=== PATIENT | female | born 1990 | race Caucasian/White ===

== ENCOUNTER 2017-06-04 17:14 | Emergency (ER) | payer MEDICAID ==
[~2017-06-04] VITALS: Ht 160 cm; Wt 68.2 kg
[2017-06-04 17:20] VITALS: BP 114/64; TEMP 98.2
[2017-06-04 18:18] VITALS: PULSE 92
== END 2017-06-04 18:19 | disposition home or self-care (01) ==
LOC: COL.ER 17:14
DX: K52.9 Noninfective gastroenteritis and colitis, unspecified (principal); J45.909 Unspecified asthma, uncomplicated

== ENCOUNTER 2018-08-25 12:48 | Emergency (ER) | payer MEDICAID ==
[~2018-08-25] VITALS: Ht 160 cm; Wt 70.5 kg
[2018-08-25 12:52] VITALS: BP 138/83; TEMP 98.1
[2018-08-25] MEDS ORDERED: XANAX 0.5MG0.5 MG PO (12:54)
[2018-08-25] MEDS ORDERED: AMITRIPTYLINE H50 M1 PO (12:54)
[2018-08-25 13:44] VITALS: PULSE 103
== END 2018-08-25 13:45 | disposition home or self-care (01) ==
LOC: COL.ER 12:48
DX: S05.01XA Injury of conjunctiva and corneal abrasion without foreign body, right eye, initial encounter (principal); F41.9 Anxiety disorder, unspecified; W55.03XA Scratched by cat, initial encounter

== ENCOUNTER 2018-12-02 16:08 | Emergency (ER) | payer MEDICAID ==
[~2018-12-02] VITALS: Ht 160 cm; Wt 76.5 kg
[~2018-12-02 16:08] MED LIST: AMITRIPTYLINE H50 M1 PO; XANAX 0.5MG0.5 MG PO
[2018-12-02 16:20] VITALS: TEMP 98.6
[2018-12-02 16:41] LABS: COLLECTION METHOD CLEAN CATCH
[2018-12-02 16:49] LABS: MUCOUS Present /lpf; PH 5 (5-8); URINE APPEARANCE Hazy; URINE BACTERIA None Seen /hpf; URINE BILIRUBIN Negative (NEGATIVE); URINE BLOOD 1+ (NEGATIVE); URINE COLOR Yellow; URINE GLUCOSE Negative (NEGATIVE); URINE KETONE Negative (NEGATIVE); URINE LEUKOCYTE ESTERASE 1+ (NEGATIVE); URINE NITRATE Negative (NEGATIVE); URINE PROTEIN(semi-quant) Negative (NEGATIVE); URINE RBC 0-2 /hpf
[2018-12-02] MEDS ORDERED: CEPHALEXIN500 M1 PO (17:14)
[2018-12-02] MEDS ORDERED: PRIL40 PO (17:15)
[2018-12-02 17:54] VITALS: BP 125/80; PULSE 96
== END 2018-12-02 17:40 | disposition home or self-care (01) ==
LOC: COL.ER 16:08
PROVIDERS: Physician Assistant
DX: N34.2 Other urethritis (principal); K21.9 Gastro-esophageal reflux disease without esophagitis; F41.9 Anxiety disorder, unspecified; F32.9 Major depressive disorder, single episode, unspecified; Z90.721 Acquired absence of ovaries, unilateral

== ENCOUNTER 2019-01-07 10:29 | Emergency (ER) | payer MEDICAID ==
[~2019-01-07] VITALS: Ht 157.5 cm; Wt 77.3 kg
[~2019-01-07 10:29] MED LIST changes: +CEPHALEXIN500 M1 PO; +PRIL40 PO
[2019-01-07 10:35] VITALS: BP 121/76
[2019-01-07 12:39] VITALS: PULSE 91; TEMP 97.6
== END 2019-01-07 12:46 | disposition home or self-care (01) ==
LOC: COL.ER 10:29
DX: B34.9 Viral infection, unspecified (principal); F41.9 Anxiety disorder, unspecified

== ENCOUNTER 2019-01-25 21:06 | Emergency (ER) | payer MEDICAID ==
[~2019-01-25] VITALS: Ht 160 cm; Wt 78.5 kg
[2019-01-25 21:13] VITALS: BP 130/78; TEMP 98.8
[2019-01-25 21:51] LABS: COLLECTION METHOD CLEAN CATCH
[2019-01-25 21:55] LABS: PH 6 (5-8); SQUAMOUS EPITHELIAL 0-2 /hpf; URINE APPEARANCE Clear; URINE BACTERIA None Seen /hpf; URINE BILIRUBIN Negative (NEGATIVE); URINE BLOOD 1+ (NEGATIVE); URINE COLOR Yellow; URINE GLUCOSE Negative (NEGATIVE); URINE KETONE Negative (NEGATIVE); URINE LEUKOCYTE ESTERASE Negative (NEGATIVE); URINE NITRATE Negative (NEGATIVE); URINE PROTEIN(semi-quant) Negative (NEGATIVE); URINE RBC 0-2 /hpf; URINE UROBILINOGEN Negative (NEGATIVE)
[2019-01-25] MEDS ORDERED: TESSALON P100 MG/CAP PO (23:33)
[2019-01-25] MEDS ORDERED: ZITHROMAX Z PA250 MG PO (23:33)
[2019-01-25] MEDS ORDERED: IBU600 MG PO (23:33)
[2019-01-25 23:49] VITALS: PULSE 106
== END 2019-01-25 23:49 | disposition home or self-care (01) ==
LOC: COL.ER 21:06
PROVIDERS: Emergency Medicine
DX: J06.9 Acute upper respiratory infection, unspecified (principal); F32.9 Major depressive disorder, single episode, unspecified

== ENCOUNTER → 2019-04-04 | Outpatient (CLI) | payer MEDICAID ==
[~2019-04-04] MED LIST changes: +IBU600 MG PO; +TESSALON P100 MG/CAP PO; +ZITHROMAX Z PA250 MG PO
== END ==
LOC: COL.RAD 07:34
DX: R31.29 Other microscopic hematuria (principal); N20.0 Calculus of kidney

== ENCOUNTER 2019-04-29 11:47 | Emergency (ER) | payer MEDICAID ==
[~2019-04-29] VITALS: Ht 160 cm; Wt 77.3 kg
[2019-04-29 12:32] VITALS: TEMP 98.9
[2019-04-29] MEDS ORDERED: TAMIFLU 75MG75 MG PO (13:44)
[2019-04-29] MEDS ORDERED: MOBIC15 MG PO (14:08)
[2019-04-29 14:23] VITALS: BP 120/75; PULSE 91
== END 2019-04-29 14:24 | disposition home or self-care (01) ==
LOC: COL.ER 11:47
DX: J11.1 Influenza due to unidentified influenza virus with other respiratory manifestations (principal); F41.9 Anxiety disorder, unspecified; R07.89 Other chest pain

== ENCOUNTER 2019-09-05 19:42 | Emergency (ER) | payer MEDICAID ==
[~2019-09-05] VITALS: Ht 160 cm; Wt 78.6 kg
[~2019-09-05 19:42] MED LIST changes: +MOBIC15 MG PO; +TAMIFLU 75MG75 MG PO
[2019-09-05 19:50] VITALS: TEMP 98.1
[2019-09-05] MEDS ORDERED: PROTONIX 40MG T40 MG PO (20:55)
[2019-09-05 21:25] VITALS: BP 113/88; PULSE 96
== END 2019-09-05 21:25 | disposition home or self-care (01) ==
LOC: COL.ER 19:42
DX: R11.2 Nausea with vomiting, unspecified (principal); R19.7 Diarrhea, unspecified; G89.29 Other chronic pain; R07.89 Other chest pain; K21.9 Gastro-esophageal reflux disease without esophagitis

== ENCOUNTER → 2019-12-03 | Outpatient (CLI) | payer MEDICAID ==
[~2019-12-03] MED LIST changes: +PROTONIX 40MG T40 MG PO
== END ==
LOC: ZCOL.LAB 16:07
DX: Z20.828 Contact with and (suspected) exposure to other viral communicable diseases (principal)

== ENCOUNTER 2020-01-11 15:09 | Emergency (ER) | payer MEDICAID ==
[~2020-01-11] VITALS: Ht 160 cm; Wt 81.4 kg
[2020-01-11 15:17] VITALS: TEMP 97.8
[2020-01-11] MEDS ORDERED: ZOFRAN 4MG T4 MG/TAB PO (15:47)
[2020-01-11 16:12] VITALS: BP 131/80; PULSE 101
== END 2020-01-11 16:13 | disposition home or self-care (01) ==
LOC: COL.ER 15:09
DX: R19.7 Diarrhea, unspecified (principal); F32.9 Major depressive disorder, single episode, unspecified; K21.9 Gastro-esophageal reflux disease without esophagitis; Z88.6 Allergy status to analgesic agent

== ENCOUNTER → 2020-01-17 | Outpatient (CLI) | payer MEDICAID ==
[~2020-01-17] MED LIST changes: +ZOFRAN 4MG T4 MG/TAB PO
== END ==
LOC: ZCOL.LAB 19:53
DX: J02.9 Acute pharyngitis, unspecified (principal); R19.7 Diarrhea, unspecified; Z20.828 Contact with and (suspected) exposure to other viral communicable diseases

== ENCOUNTER 2020-06-07 17:25 | Emergency (ER) | payer MEDICAID ==
[~2020-06-07] VITALS: Ht 160 cm; Wt 77.3 kg
[2020-06-07 17:43] VITALS: TEMP 97.5
[2020-06-07 19:23] LABS: BASO # 0.1 (0.0-0.2); BASO % 0.3 % (0.0-2.0); EOS % 0.1 % (0-4.0); GRAN # 12.3 (1.4-6.5); GRAN % 81.7 % (42.2-75.2); HEMATOCRIT 49.1 % (37.0-47.0); HEMOGLOBIN 16.9 g/dl (12.5-16.0); LYMPH # 1.7 (1.2-3.4); LYMPH % 11.3 % (20.0-51.0); MEAN CELL VOLUME 90 fl (80.0-100.0); MEAN CORPUSCULAR HEMOGLOBIN 31 pg (27.0-31.0); MEAN CORPUSCULAR HGB CONC 34 g/dl (33.0-37.0); MEAN PLATELET VOLUME 10.9 fl (7.4-10.4); MONO # 0.9 (0.1-0.6); MONO % 6.2 % (1.7-9.3); PLATELET COUNT 241 K/mm3 (130-400); RED BLOOD COUNT 5.46 M/mm3 (4.10-5.30); REDCELL DISTRIBUTION WIDTH-CV 12.9 % (11.5-14.5)
[2020-06-07 19:36] LABS: ALBUMIN 4.9 gm/dL (3.5-5.0); BILIRUBIN,TOTAL 1.3 mg/dL (0.0-1.0); C-REACTIVE PROTEIN 0.6 mg/dL (0.0-0.9); CALCIUM 10.2 mg/dL (8.4-10.2); CREATININE, serum 0.64 (0.52-1.25); POTASSIUM 4.3 mmol/L (3.4-5.0); TOTAL PROTEIN 8.7 gm/dL (6.4-8.2)
[2020-06-07] MEDS ORDERED: FLAGYL500 MG PO (23:24)
[2020-06-07] MEDS ORDERED: CIPRO 500MG TA500 MG PO (23:24)
[2020-06-07 23:45] VITALS: BP 120/83; PULSE 109
--- NOTE | 2020-06-08 09:21 | NUR ---
SENG follow-up form ED Visit animal care worker contact patient about referral for lack of resources. Patient reports that she needs to obtain her medications from the pharmacy. Patient reports that her vehicle is in the parking lot and she was sent home with a taxi. Patient reports that she has medical insurance and her medications are covered at [facility] and that her PCP is Dr. Pritchard at [facility]. Patient reports that she only needed support getting the medications. SENG staffed case with her and advised to call the pharmacy for delivery of the medications. Patient reports that she has a co-worker who could slate picker her care but is concerned about pain managment. Patient is educated to follow-up with PCP. No additional concerns at this time. Offered CCT program, Patient declined.
== END 2020-06-07 23:48 | disposition home or self-care (01) ==
LOC: COL.ER 17:25
PROVIDERS: Physician Assistant
DX: K52.9 Noninfective gastroenteritis and colitis, unspecified (principal); F41.9 Anxiety disorder, unspecified; F32.9 Major depressive disorder, single episode, unspecified; K21.9 Gastro-esophageal reflux disease without esophagitis; Z88.6 Allergy status to analgesic agent
CPT/HCPCS: J1885; J2405; J3010; J7030; Q9967

== ENCOUNTER 2020-07-09 09:34 | Emergency (ER) | payer MEDICAID ==
[~2020-07-09] VITALS: Ht 160 cm; Wt 70.5 kg
[~2020-07-09 09:34] MED LIST changes: +CIPRO 500MG TA500 MG PO; +FLAGYL500 MG PO
[2020-07-09 09:36] VITALS: TEMP 97.5
[2020-07-09 10:31] LABS: BASO % 0.3 % (0.0-2.0); EOS # 0.2 (0.0-0.7); EOS % 1.8 % (0-4.0); GRAN # 7.6 (1.4-6.5); GRAN % 82.9 % (42.2-75.2); HEMATOCRIT 48.4 % (37.0-47.0); HEMOGLOBIN 15.9 g/dl (12.5-16.0); LYMPH % 10.9 % (20.0-51.0); MEAN CELL VOLUME 93 fl (80.0-100.0); MEAN CORPUSCULAR HEMOGLOBIN 30 pg (27.0-31.0); MEAN CORPUSCULAR HGB CONC 33 g/dl (33.0-37.0); MEAN PLATELET VOLUME 10.7 fl (7.4-10.4); MONO # 0.4 (0.1-0.6); MONO % 3.9 % (1.7-9.3); PLATELET COUNT 227 K/mm3 (130-400); RED BLOOD COUNT 5.23 M/mm3 (4.10-5.30); REDCELL DISTRIBUTION WIDTH-CV 13.2 % (11.5-14.5)
[2020-07-09 10:41] LABS: ALBUMIN 4.9 gm/dL (3.5-5.0); BILIRUBIN,TOTAL 0.6 mg/dL (0.0-1.0); CREATININE, serum 0.62 (0.52-1.25); TOTAL PROTEIN 9.1 gm/dL (6.4-8.2)
[2020-07-09] MEDS ORDERED: BENTYL 10MG10 MG/CAP PO (11:37)
[2020-07-09] MEDS ORDERED: ZOFRAN ODT4 MG PO (11:37)
[2020-07-09 11:47] VITALS: BP 132/87; PULSE 84
== END 2020-07-09 12:00 | disposition home or self-care (01) ==
LOC: COL.ER 09:34
PROVIDERS: Emergency Medicine
DX: R11.2 Nausea with vomiting, unspecified (principal); R19.7 Diarrhea, unspecified; R10.9 Unspecified abdominal pain; Z88.6 Allergy status to analgesic agent
CPT/HCPCS: J1200; J1885; J2765; J7030

== ENCOUNTER 2020-07-10 09:06 | Observation (INO) | payer MEDICAID ==
[~2020-07-10] VITALS: Ht 160 cm; Wt 68.2 kg
[~2020-07-10 09:06] MED LIST changes: +BENTYL 10MG10 MG/CAP PO; +ZOFRAN ODT4 MG PO
[2020-07-10 13:51] VITALS: BP 129/83; PULSE 110; TEMP 98.4
[2020-07-10 16:00] VITALS: BP 133/73; PULSE 117; TEMP 98.8
--- NOTE | 2020-07-10 18:33 | NUR ---
Patient resting in bed at this time. Reports that pain is currently well controlled, but does spike when she has cramps. Patient initally refused lab draws, did eventually agree when informed that hospitalist states she will not be able to have procedures without baseline labs. Discussed clear liquid diet and bowel prep. Patient denies further needs, call light within reach.
[2020-07-10 19:17] VITALS: BP 118/70; PULSE 116; TEMP 99.1
--- NOTE | 2020-07-10 20:00 | NUR ---
PT GIVEN BOWEL PREP OF GATORADE/MIRALAX TO START DRINKING FOR SCHEDULED EGD/COLONOSCOPY TOMORROW 07/11. PT IS ALERT AND ORIENTED X4. HAS IVF INFUSING TO LEFT HAND WITHOUT REDNESS OR SWELLING. VOIDING WITHOUT PROBLEM.
--- NOTE | 2020-07-10 23:29 | NUR ---
PT ASKING TO HAVE IVF STOPPED, SHE IS HAVING DIFFICULTY GETTING TO THE BATHROOM D/T BOWEL PREP. ASKED PT TO CALL FOR HELP WITH IV POLE IF UNABLE TO PUSH IT. PT REPORTS HAVING LOOSE STOOLS, BUT HAS NOT SAVED ANY FOR THIS NURSE TO OBSERVE. PT WORKING ON SECOND BOTTLE OF PREP.
[2020-07-10 23:57] VITALS: BP 135/85; PULSE 114; TEMP 98.3
[2020-07-11] VITALS (8 sets, daily range): BP systolic 91–128; BP diastolic 39–82; PULSE 100–117; TEMP 97.9–99.8
--- NOTE | 2020-07-11 04:36 | NUR ---
MEDICATED WITH ATIVAN 0.5MG PO FOR LAB DRAW THIS AM. PT REPORTS LOOSE STOOLS, NO FURTHER SOLID. WAS UNABLE TO FINISH ALL OF LAST BOTTLE OF BOWEL PREP.
[2020-07-11 07:46] LABS: BASO % 0.4 % (0.0-2.0); EOS # 0.2 (0.0-0.7); EOS % 2.2 % (0-4.0); GRAN # 6.1 (1.4-6.5); GRAN % 73.7 % (42.2-75.2); HEMATOCRIT 38.4 % (37.0-47.0); LYMPH # 1.2 (1.2-3.4); LYMPH % 14.9 % (20.0-51.0); MEAN CELL VOLUME 90 fl (80.0-100.0); MEAN CORPUSCULAR HEMOGLOBIN 31 pg (27.0-31.0); MEAN CORPUSCULAR HGB CONC 34 g/dl (33.0-37.0); MEAN PLATELET VOLUME 10.8 fl (7.4-10.4); MONO # 0.7 (0.1-0.6); MONO % 8.6 % (1.7-9.3); PLATELET COUNT 176 K/mm3 (130-400); RED BLOOD COUNT 4.25 M/mm3 (4.10-5.30); REDCELL DISTRIBUTION WIDTH-CV 13.4 % (11.5-14.5)
[2020-07-11 07:54] LABS: HEMOGLOBIN 13.1 g/dl (12.5-16.0)
[2020-07-11 07:58] LABS: ALBUMIN 3.7 gm/dL (3.5-5.0); BILIRUBIN,TOTAL 0.8 mg/dL (0.0-1.0); CREATININE, serum 0.58 (0.52-1.25); POTASSIUM 3.4 mmol/L (3.4-5.0); TOTAL PROTEIN 6.8 gm/dL (6.4-8.2)
[2020-07-11 08:09] LABS: C-REACTIVE PROTEIN 13.9 mg/dL (0.0-0.9)
[2020-07-11 08:47] LABS: ERYTHROCYTE SEDIMENTATION RATE 14 mm/hr (0-20)
--- NOTE | 2020-07-11 11:20 | NUR ---
Patient to EGD/colonoscopy at this time.
--- NOTE | 2020-07-11 12:30 | NUR ---
Patient returns from EDG/colonscopy at 1225. Assessment unchanged. Requests food and to ambulate to the restroom. No c/o at this time.
[2020-07-11] MEDS ORDERED: PEPCID 20MG TAB20 MG PO (13:05)
[2020-07-11] MEDS ORDERED: PREDNISONE10 MG PO (13:07)
--- NOTE | 2020-07-11 15:00 | NUR ---
Discharge instructions reviewed with patient, verbalized understanding. Discharged via wheelchair to auto/home with family at 1500.
--- NOTE | 2020-07-11 16:11 | NUR ---
SW met with patient prior to DC. Notification indicated that the patient left her 8 year old was left with a nieghbor but was unsure if the nieghbor was appropriate. SW met with patient about this concerns. Patient reports that her son is with the nieghbor who is also a family friend and has taken care of her son before. Patient reports that it is a trusted friend. Patient that she boone snot have any additional needs and is supported in her care. NF.
== END 2020-07-11 15:00 | disposition home or self-care (01) ==
LOC: COL.ER 09:06 → SURG 11:49
PROVIDERS: Emergency Medicine; ADMIT Family Medicine
DX: K51.90 Ulcerative colitis, unspecified, without complications (principal); K29.30 Chronic superficial gastritis without bleeding; K25.9 Gastric ulcer, unspecified as acute or chronic, without hemorrhage or perforation; K29.80 Duodenitis without bleeding; K92.1 Melena; K63.5 Polyp of colon; K21.9 Gastro-esophageal reflux disease without esophagitis; K63.4 Enteroptosis; K44.9 Diaphragmatic hernia without obstruction or gangrene; K56.600 Partial intestinal obstruction, unspecified as to cause; K63.89 Other specified diseases of intestine; J45.909 Unspecified asthma, uncomplicated; F32.9 Major depressive disorder, single episode, unspecified; F41.9 Anxiety disorder, unspecified; Z88.5 Allergy status to narcotic agent; Z79.899 Other long term (current) drug therapy; Z82.49 Family history of ischemic heart disease and other diseases of the circulatory system; Z83.3 Family history of diabetes mellitus; Z83.79 Family history of other diseases of the digestive system
CPT/HCPCS: 99239; G0378; J1170; J1200; J1630; J2250; J2405; J2704; J2765; J7030; J7512; Q9967

== ENCOUNTER 2021-08-08 11:50 | Emergency (ER) | payer MEDICAID ==
[~2021-08-08] VITALS: Ht 160 cm; Wt 60.9 kg
[~2021-08-08 11:50] MED LIST changes: +PEPCID 20MG TAB20 MG PO; +PREDNISONE10 MG PO
[2021-08-08 11:55] VITALS: TEMP 98.4
[2021-08-08 12:22] LABS: BASO % 0.3 % (0.0-2.0); EOS % 0.1 % (0.0-4.0); GRAN # 7.7 K/mm3 (1.4-6.5); GRAN % 76.8 % (42.2-75.2); HEMATOCRIT 45.9 % (37.0-47.0); HEMOGLOBIN 15.9 g/dl (12.5-16.0); LYMPH # 1.6 K/mm3 (1.2-3.4); LYMPH % 15.4 % (20.0-51.0); MEAN CELL VOLUME 91 fl (80.0-100.0); MEAN CORPUSCULAR HEMOGLOBIN 32 pg (27-31); MEAN CORPUSCULAR HGB CONC 35 g/dl (33.0-37.0); MEAN PLATELET VOLUME 10.2 fl (7.4-10.4); MONO # 0.7 K/mm3 (0.1-0.6); MONO % 7.1 % (1.7-9.3); PLATELET COUNT 226 K/mm3 (130-400); RED BLOOD COUNT 5.05 M/mm3 (4.10-5.30); REDCELL DISTRIBUTION WIDTH-CV 13.2 % (11.5-14.5)
[2021-08-08 12:40] LABS: BILIRUBIN,TOTAL 1.2 mg/dL (0.2-1.2); CALCIUM 9.6 mg/dL (8.4-10.2); CREATININE, serum 0.68 mg/dL (0.57-1.11); POTASSIUM 3.4 mmol/L (3.5-4.5); TOTAL PROTEIN 7.9 gm/dL (6.2-8.1)
[2021-08-08 13:19] LABS: COLLECTION METHOD CLEAN CATCH
[2021-08-08 13:30] LABS: MUCOUS Present (NOT PRESENT); PH 5 (5-8); URINE APPEARANCE Hazy (CLEAR/HAZY); URINE BACTERIA Rare /hpf (NONE SEEN); URINE BILIRUBIN Negative (NEGATIVE); URINE BLOOD Negative (NEGATIVE); URINE COLOR Amber (YELLOW); URINE GLUCOSE Negative (NEGATIVE); URINE KETONE 2+ (NEGATIVE); URINE LEUKOCYTE ESTERASE Trace (NEGATIVE); URINE NITRATE Negative (NEGATIVE); URINE PROTEIN(semi-quant) 1+ (NEGATIVE); URINE RBC 0-2 /hpf (0-2); URINE UROBILINOGEN >=4.0 (NEGATIVE)
[2021-08-08] MEDS ORDERED: PEPCID 20MG TAB20 MG PO (16:15)
[2021-08-08 16:35] VITALS: BP 125/83; PULSE 78
== END 2021-08-08 16:35 | disposition home or self-care (01) ==
LOC: COL.ER 11:50
PROVIDERS: Emergency Medicine
DX: O26.891 Other specified pregnancy related conditions, first trimester (principal); R10.13 Epigastric pain; Z3A.12 12 weeks gestation of pregnancy; Z28.311 Partially vaccinated for COVID-19
CPT/HCPCS: J2405; J7120; Q9967